=== PATIENT | male | born 1940 | race Caucasian/White ===

== ENCOUNTER 2025-01-06 17:36 | Emergency (ER) | payer MEDICARE ==
--- NOTE | 2025-01-06 18:04 | ED ---
Upper Extremity HPI - General Chief Complaint: Extremity Injury, Upper Stated Complaint: Lac. on both hands Time Seen by Provider: 01/06/25 17:49 Source: patient, RN notes reviewed Mode of arrival: ambulatory Limitations: no limitations - History of Present Illness Initial Comments: Discharge. 84-year-old male presented to emergency department accompanied by family for complaints of bilateral hand injuries. Patient was moving a water ski box when the lid fell onto his hands causing multiple skin tears. Patient denies falling, hitting his head, or loss conscious at the time of the injury. Denies blood thinner use. Unaware when last tetanus vaccination was. - Related Data Allergies Allergy/AdvReac Type Severity Reaction Status Date / Time No Known Allergies Allergy Verified 01/06/25 17:47 Review of Systems ROS Statement: Those systems with pertinent positive or pertinent negative responses have been documented in the HPI. ROS Other: All systems not noted in ROS Statement are negative. Past Medical History Past Medical History: COPD, GERD/Reflux, Hyperlipidemia, Hypertension, Prostate Disorder, Thyroid Disorder History of Any Multi-Drug Resistant Organisms: None Reported Past Surgical History: Back Surgery, Cholecystectomy Past Psychological History: No Psychological Hx Reported Smoking Status: Former smoker Past Alcohol Use History: Occasional Past Drug Use History: None Reported General Exam Limitations: no limitations General appearance: alert, in no apparent distress Neck exam: Present: normal inspection. Absent: tenderness, meningismus, lymphadenopathy Respiratory exam: Present: normal lung sounds bilaterally. Absent: respiratory distress, wheezes, rales, rhonchi, stridor Cardiovascular Exam: Present: regular rate, normal rhythm, normal heart sounds. Absent: systolic murmur, diastolic murmur, rubs, gallop, clicks GI/Abdominal exam: Present: soft, normal bowel sounds. Absent: distended, tenderness, guarding, rebound, rigid Left Hand Wrist exam: Present: tenderness, other (skin avulsion located over the anterior forearm (2 cm) additional 1 cm and dorsum of hand over the 2nd MCP joint 1 cm) Neuro motor exam: Present: wrist extension intact, thumb opposition intact Vascular: Present: normal capillary refill, radial pulse (2+). Absent: vascular compromise Back exam: Present: normal inspection Course Vital Signs 01/06/25 01/06/25 17:40 19:17 Temperature 98.5 F 98.7 F Pulse Rate 90 88 Respiratory 18 20 Rate Blood Pressure 173/87 155/118 O2 Sat by Pulse 97 97 Oximetry Medical Decision Making - Medical Decision Making Was pt. sent in by a medical professional or institution (RIGOBERTO Manzanares, ASSISTANT PROFESSOR OF BIOLOGY, urgent ca re, hospital, or detention...) When possible be specific @ -No Did you speak to anyone other than the patient for history (EMS, parent, family, police, friend...)? What history was obtained from this source @ -No Did you review nursing and triage notes (agree or disagree)? Why? @ -I reviewed and agree with nursing and triage notes Were old charts reviewed (outside hosp., previous admission, EMS record, old EKG, old radiological studies, urgent care reports/EKG's, detention records)? Report findings @ -No old charts were reviewed Differential Diagnosis (chest pain, altered mental status, abdominal pain women, abdominal pain men, vaginal bleeding, weakness, fever, dyspnea, syncope, headache, dizziness, GI bleed, back pain, seizure, CVA, palpatations, mental health, musculoskeletal)? @ -Skin avulsions, laceration, metacarpal fracture, muscle system all inclusive EKG interpreted by me (3pts min.). @ -None X-rays interpreted by me (1pt min.). @ -X-ray of bilateral hands no acute osseous pathology. CT interpreted by me (1pt min.). @ -None done U/S interpreted by me (1pt. min.). @ -None done What testing was considered but not performed or refused? (CT, X-rays, U/S, labs)? Why? @ -None What meds were considered but not given or refused? Why? @ -None Did you discuss the management of the patient with other professionals (professionals i.e. RIGOBERTO Manzanares, ASSISTANT PROFESSOR OF BIOLOGY, lab, RT, psych nurse, social service agency director, timber grader, teacher, medical corps officer, mental health case manager)? Give summary @ -No Was smoking cessation discussed for >3mins.? @ -No Was critical care preformed (if so, how long)? @ -No Were there social determinants of health that impacted care today? How? (Homelessness, low income, unemployed, alcoholism, drug addiction, transportation, low edu. Level, literacy, decrease access to med. care, [facility], rehab)? @ -No Was there de-escalation of care discussed even if they declined (Discuss DNR or withdrawal of care, Hospice)? DNR status @ -No What co-morbidities impacted this encounter? (DM, HTN, Smoking, COPD, CAD, Cancer, CVA, ARF, Chemo, Hep., AIDS, mental health diagnosis, sleep apnea, morbid obesity)? @ -None Was patient admitted / discharged? Hospital course, mention meds given and route, prescriptions, significant lab abnormalities, going to OR and other pertinent info. @ -Discharge. 84-year male presented emergency room with bilateral hand injuries. There are noted skin avulsions over the left forearm and hand. X- rays were unremarkable. Area was cleansed with Betadine solution and Steri- Strips applied over skin avulsions. Patient is advised on return parameters. Updated on tetanus vaccine. Case discussed with Dr. Cast Undiagnosed new problem with uncertain prognosis? @ -No Drug Therapy requiring intensive monitoring for toxicity (Heparin, Nitro, Insulin, Cardizem)? @ -No Were any procedures done? @ -No Diagnosis/symptom? @ -skin avulsion Acute, or Chronic, or Acute on Chronic? @ -acute Uncomplicated (without systemic symptoms) or Complicated (systemic symptoms)? @ -uncomplicated Side effects of treatment? @ -No Exacerbation, Progression, or Severe Exacerbation? @ -No Poses a threat to life or bodily function? How? (Chest pain, [place], [place], pneumonia, PE, COPD, DKA, ARF, appy, cholecystitis, CVA, Diverticulitis, Homicidal, Suicidal, threat to staff... and all critical care pts) @ -No Disposition Clinical Impression: Avulsion, skin Disposition: HOME SELF-CARE Condition: Good Instructions (If sedation given, give patient instructions): Skin Avulsion (ED) Additional Instructions: Please return to the Emergency Department if symptoms worsen or any other concerns. Is patient prescribed a controlled substance at d/c from ED?: No Referrals: Devon Cevallos MD [Primary Care Provider] - 1-2 days Time of Disposition: 18:55
--- NOTE | 2025-01-06 18:52 | XR ---
EXAMINATION TYPE: XR hand complete bilateral DATE OF EXAM: 01/06/2025 6:12 PM COMPARISON: None CLINICAL INDICATION: Male, 84 years old with history of bilateral hand injury; PHH, pain TECHNIQUE: XR hand complete bilateral 3 views were obtained. FINDINGS: Normal alignment of the visualized joints. No acute osseous pathology is identified. No e vidence of soft tissue swelling. Multifocal degeneration changes with joint space narrowing and osteo phyte formation. no radiopaque foreign bodies. IMPRESSION: 1. No acute osseous pathology bilaterally. 2. Multifocal osteoarthrosis throughout the joints of the hand. 3. No radiopaque foreign body. [facility], , 01/06/2025 6:50 PM
[2025-01-06 19:19] VITALS: BP 155/118; PULSE 88; RESP 20; TEMP 98.7
== END 2025-01-06 19:19 | disposition home or self-care (01) ==
LOC: EC 17:36
DX: S51.802A Unspecified open wound of left forearm, initial encounter (principal); S61.402A Unspecified open wound of left hand, initial encounter; Z87.891 Personal history of nicotine dependence; W22.8XXA Striking against or struck by other objects, initial encounter
CPT/HCPCS: 99283